=== PATIENT | female | born 1985 | race Caucasian/White ===

== ENCOUNTER → 2016-05-28 | Outpatient (CLI) | payer OTHER ==
--- NOTE | 2016-06-01 13:57 | CPEEG ---
[f rep st] ELECTROENCEPHALOGRAM DATE OF STUDY: 05/28/2016 DATE OF INTERPRETATION: 06/01/2016. INTERPRETATION: Normal EEG during wakefulness and sleep. There were no potentially epileptogenic abnormalities present during the recording. REPORT: This EEG contains 10 Hz alpha activity to the posterior head regions. There was no abnormal activation at rest, during photic stimulation, or hyperventilation. Approximately 1 minute and 30 seconds into hyperventilation, the patient had a normal hyperventilation built-up response composed of moderate amplitude delta frequency activity, maximal over the anterior head regions. The patient became drowsy and fell asleep towards the end of the study. There was no abnormal activation during drowsiness, sleep, or during times of arousal. /[id number]/MODL MTDD
== END ==
LOC: FCPNEURO 12:53
PROVIDERS: ATTEND Psychiatry & Neurology Clinical Neurophysiology
DX: G43.109 Migraine with aura, not intractable, without status migrainosus (principal)

== ENCOUNTER → 2016-06-23 | Outpatient (CLI) | payer OTHER ==
--- NOTE | 2016-06-23 11:44 | CPEEG ---
[f rep st] ELECTROENCEPHALOGRAM DATE OF STUDY: 06/23/2016 INTERPRETATION: Normal EEG during wakefulness and sleep. There was no potentially epileptogenic abn ormalities present during recording. REPORT: This EEG contains 10 Hz alpha activity to the posterior head regions. There was no abnormal activation at rest, during photic stimulation, or hyperventilation. With hyperventilation, the joelle ent had a normal physiologic hyperventilation buildup response composed of anterior-dominant rhythmic delta frequency activity. The patient became drowsy and fell into sustained sleep during the record ing. There was no abnormal activation during drowsiness, sleep, or during times of arousal. /[id number]/MODL
== END ==
LOC: FCPNEURO 09:06
PROVIDERS: ATTEND Psychiatry & Neurology Clinical Neurophysiology
DX: G43.809 Other migraine, not intractable, without status migrainosus (principal); R11.0 Nausea